=== PATIENT | male | born 1980 | race Caucasian/White ===

== ENCOUNTER 2024-12-12 15:26 | Emergency (ER) | payer OTHER, SELFPAY ==
[2024-12-12 15:37] VITALS: BP 132/88; PULSE 88; RESP 16; TEMP 36.3; O2SAT 99
--- NOTE | 2024-12-12 15:45 | ED_ITS ---
HPI - Ear Problem General Chief complaint: Ear Stated complaint: pain in both ears Time Seen by Provider: 12/12/24 15:35 Source: patient and RN notes reviewed Mode of arrival: ambulatory Limitations: no limitations History of Present Illness HPI Narrative: 44-year-old male presents Express Care complaining of bilateral ear pain for approximately 2 weeks. Patient denies any recent swimming but reports wearing ear plugs all the time when he is working. Patient denies any upper respiratory symptoms, cough, fevers, body aches, chills, nausea vomiting, dizziness, lightheadedness, chest pain, shortness of breath, or any other symptoms. Patient tried [id number] ear drops without any relief. Related Data Home Medications ?Medication ?Instructions ?Recorded ?Confirmed ?Last Taken ?Type levetiracetam 750 mg tablet mg PO 12/12/24 Unknown History Allergies Allergy/AdvReac Type Severity Reaction Status Date / Time No Known Allergies Allergy Verified 12/12/24 15:40 Review of Systems Review of Systems: CONSTITUTIONAL: Denies fever, chills, or sweats. EYES: Denies visual changes, redness, or discharge. ENT: Denies rhinorrhea, congestion, otorrhea, tinnitus, sore throat. Positive for otalgia. CARDIOVASCULAR: Denies chest pain, palpitations, dizziness, lightheadedness, loss of conscious, or edema. RESPIRATORY: Denies cough or dyspnea. GASTROINTESTINAL: Denies abdominal pain, nausea, vomiting, or diarrhea. GENITOURINARY: Denies dysuria or hematuria. SKIN: Denies rash or itching. MUSCULOSKELETAL: Denies back pain, joint pain, or myalgia. NEUROLOGIC: Denies headache, numbness, or weakness. PSYCHIATRIC: Denies anxiety or depression. All other systems reviewed are negative, except as documented in HPI. PMFSH Social History Social History Smoking status: Never smoker Alcohol intake: current Comments At the time of my signature, I reviewed and agree with the nursing past medical, surgical, social, and family history. There is no relevant family history pertinent to the patient complaint. Exam Narrative: GENERAL: This is a well-nourished, well-developed adult, in no apparent distress. They are non ill-appearing, nontoxic appearing. HEAD: normocephalic, atraumatic. EYES: Sclera clear/white. Conjunctiva normal. Vision is grossly intact. Extraocular movements intact EARS: External ears normal, auditory canals erythematous bilaterally without drainage, TMs normal without perforation. Hearing grossly intact. NOSE: External nose normal THROAT: Mucous membranes moist, NECK: Neck supple, CARDIOVASCULAR: Regular rate and rhythm RESPIRATORY: Respiratory rate normal, respiratory effort nonlabored, no respiratory distress SKIN: warm, Dry, intact with no suspicious lesions or rash, good texture and turgor. NEURO: awake, alert, and oriented to person, place and time. There were no obvious focal neurologic abnormalities. EXTREMITIES: No joint tenderness, effusion, or edema noted. Course Course Emergency Course: Portions of this record may have been created with voice recognition software Level of Care: Express Care Visit Vital Signs Vital signs: Vital Signs Temperature 97.3 F L 12/12/24 15:37 Pulse Rate 88 12/12/24 15:37 Respiratory Rate 16 12/12/24 15:37 Blood Pressure 132/88 12/12/24 15:37 Pulse Oximetry 99 12/12/24 15:37 Oxygen Delivery Room Air 12/12/24 15:37 Temperature 97.3 F L 12/12/24 15:37 Pulse Rate 88 12/12/24 15:37 Respiratory Rate 16 12/12/24 15:37 Blood Pressure 132/88 12/12/24 15:37 Pulse Oximetry 99 12/12/24 15:37 Oxygen Delivery Room Air 12/12/24 15:37 Reviewed Medical Decision Making MDM Narrative Medical decision making narrative: Patient has bilateral otitis externa likely from ear plug used. Will prescribe ofloxacin ear drops. Discussed physical exam findings. Advised supportive measures and signs/symptoms to go to the ER. Pt is appropriate for outpt treatment and f/u. Differential Diagnosis Differential Diagnosis: Otitis media, otitis externa, upper respiratory infection, impacted cerumen. Vital Signs Vital Signs: Vital Signs Temperature 97.3 F L 12/12/24 15:37 Pulse Rate 88 12/12/24 15:37 Respiratory Rate 16 12/12/24 15:37 Blood Pressure 132/88 12/12/24 15:37 Pulse Oximetry 99 12/12/24 15:37 Oxygen Delivery Room Air 12/12/24 15:37 Temperature 97.3 F L 12/12/24 15:37 Pulse Rate 88 12/12/24 15:37 Respiratory Rate 16 12/12/24 15:37 Blood Pressure 132/88 12/12/24 15:37 Pulse Oximetry 99 12/12/24 15:37 Oxygen Delivery Room Air 12/12/24 15:37 Critical Care Time Critical Care Time Critical Care Time: No Discharge Plan Discharge Clinical Impression: Otitis externa Qualifiers: Otitis externa type: diffuse Chronicity: acute Laterality: bilateral Qualified Code(s): H60.313 - Diffuse otitis externa, bilateral Patient Disposition: Home Condition: Stable Instructions: Ear Infection (ED) Additional Instructions: Take antibiotic drops as directed. Tylenol and ibuprofen every 8 hours as needed to reduce fever, pain Avoid water or anything into the ear for one week Follow up with your personal physician for further evaluation and treatment within 3-5days. If your symptoms persist, change or worsen significantly, go to the emergency department for further evaluation. Patient Language: Chinese Prescriptions: New ofloxacin 0.3 % drops 10 drp EACH EAR DAILY 7 Days Qty: 10 0RF No Action levetiracetam 750 mg tablet PO Follow-up/Referrals: PHYSICIAN,ADVERTISING SUPERVISOR [Primary Care Provider] - Time of Disposition: 15:44
== END 2024-12-12 15:50 | disposition home or self-care (01) ==
DX: H60.313 Diffuse otitis externa, bilateral (principal)
CPT/HCPCS: 99203; G0463